=== PATIENT | male | born 1985 | race Caucasian/White ===

== ENCOUNTER 2023-11-23 00:32 | Emergency (ER) | payer SELFPAY ==
[2023-11-23] MEDS: Oxymetazoline 0.05% Nasal Spray 30 ML Bottle NAS ONE (00:55)
[2023-11-23 02:53] LABS: CORONAVIRUS COVID-19 NAA NEGATIVE (NEGATIVE); INFLUENZA A NAA NEGATIVE (NEGATIVE); INFLUENZA B NAA NEGATIVE (NEGATIVE); RESPIRATORY SYNCYTIAL VIR NAA NEGATIVE (NEGATIVE)
== END 2023-11-23 00:54 | disposition left against medical advice (07) ==
LOC: MW.ED 00:32
DX: R09.81 Nasal congestion (principal); Z75.8 Other problems related to medical facilities and other health care
CPT/HCPCS: 0241U; 99283